=== PATIENT | female | born 1980 | race Two or more races ===

== ENCOUNTER 2022-12-23 15:37 | Emergency (ER) | payer MEDICAID ==
[~2022-12-23] VITALS: Ht 177.8 cm; Wt 69.0 kg
[2022-12-23 15:43] VITALS: BP 138/93
[2022-12-23] MEDS ORDERED: NAPR-681 PO (16:54)
[2022-12-23] MEDS ORDERED: BO1 TP (16:54)
[2022-12-23] MEDS ORDERED: DOXY100T28 PO (16:54)
== END 2022-12-23 20:10 | disposition home or self-care (01) ==
LOC: ER 16:01
DX: L03.115 Cellulitis of right lower limb (principal); L97.909 Non-pressure chronic ulcer of unspecified part of unspecified lower leg with unspecified severity
CPT/HCPCS: 99283